=== PATIENT | female | born 1970 | race Caucasian/White ===

== ENCOUNTER 2024-12-27 15:18 | Emergency (ER) | payer OTHER ==
[~2024-12-27] VITALS: Ht 152.4 cm; Wt 68.4 kg
[2024-12-27 15:28] VITALS: TEMP 36.8; O2SAT 100
[2024-12-27 17:37] LABS: BASOPHILS % 0.8 % (0.0-2.0); EOSINOPHILS % 2.2 % (0.0-5.0); HEMATOCRIT. 43.1 % (36.0-48.0); HEMOGLOBIN. 14.8 g/dL (12.0-16.0); LYMPHOCYTES % 38.2 % (20.0-50.0); MEAN CORPUSCULAR HEMOGLOBIN 29.9 pg (28.0-32.0); MEAN CORPUSCULAR HGB CONC 34.3 g/dL (31.0-37.0); MEAN CORPUSCULAR VOLUME 87.2 fL (81.0-99.0); MONOCYTES % 8.8 % (2.0-8.0); PLATELET 256 x1000/uL (130-400); RED BLOOD CELL COUNT 4.95 mill/uL (4.2-5.4); WHITE BLOOD COUNT 5.9 x1000/uL (4.5-11.0)
[2024-12-27 17:42] LABS: CHLORIDE 107 mEq/L (98-107); POTASSIUM 3.5 mEq/L (3.5-5.1); SODIUM 142 mEq/L (136-145)
[2024-12-27 17:43] LABS: CALCIUM 9.8 mg/dL (8.7-10.4); CARBON DIOXIDE 21 mEq/L (21-32)
[2024-12-27 17:48] LABS: CREATININE 0.7 mg/dL (0.6-1.0); GLUCOSE 100 mg/dL (70-105); UREA NITROGEN BLOOD 10 mg/dL (9-23)
[2024-12-27 17:51] LABS: TROPONIN I HIGH SENSITIVITY < 4 ng/L (3.0-34)
[2024-12-27] MEDS ORDERED: METOCLOPRAMIDE HCL 10MG TABLET PO ONE (18:00)
[2024-12-27] MEDS ORDERED: IBUPROFEN 600MG TABLET PO ONE (18:00)
[2024-12-27] MEDS ORDERED: DIPHENHYDRAMINE 25MG CAPSULE PO ONE (18:00)
[2024-12-27] MEDS ORDERED: IBUP-2029 MT (18:08)
[2024-12-27] MEDS ORDERED: METO-293 MT (18:08)
[2024-12-27 20:07] VITALS: O2SAT 100
[2024-12-27 20:08] VITALS: BP 141/94; PULSE 86; RESP 16
[2024-12-27] MEDS: IBUPROFEN 600MG TABLET PO NR (20:08)
[2024-12-27] MEDS: DIPHENHYDRAMINE 25MG CAPSULE PO NR (20:09)
[2024-12-27] MEDS: METOCLOPRAMIDE HCL 10MG TABLET PO NR (20:09)
== END 2024-12-27 20:11 | disposition home or self-care (01) ==
LOC: ER 15:18
DX: G44.209 Tension-type headache, unspecified, not intractable (principal); R07.89 Other chest pain
CPT/HCPCS: 99285; 71045; 80048; 85025; 84484; 36415; 93005; Q0163; J8597